=== PATIENT | female | born 1980 ===

== ENCOUNTER 2024-02-03 06:55 | Day surgery (SDC) | payer BC, SELFPAY ==
[2024-02-03 07:27] VITALS: BP 105/75; PULSE 74; RESP 18; TEMP 36.3; O2SAT 98
--- NOTE | 2024-02-03 07:29 | ANES.PREANE2 ---
Pre-Anesthetic Assessment Height/Weight: Height 1.7 m Weight 77.111 kg Temp Pulse Resp BP Pulse Ox O2 Del Method 97.4 F L 74 18 105/75 98 Room Air 02/03/24 07:27 02/03/24 07:27 02/03/24 07:27 02/03/24 07:27 02/03/24 07:27 02/03/24 07:27 Operation Date: 02/03/24 08:00 Proposed Procedures p EGD [id number], G0121, Z12.11 , K21.9(Not Applicable) - Bautista Hernández DO s Colonoscopy(Not Applicable) - Bautista Hernández DO Familial anesthetic complications: None Was Beta Mike taken within 24 hours: N/A Was Clonidine taken within 24 hours: N/A Last intake: > 8 hrs Social No alcohol and No tobacco Exam alert, oriented x 3, clear to auscultation bilaterally and regular rate & rhythm Airway Mallampati: Class I Dentition: full GI Gastroesophageal Reflux Disease Anesthetic Plan ASA status: 2 Anesthesia: MAC Risk of > 500 ml blood loss (7ml/kg in children): No Medications/Allergies Home Medications Medication Instructions Recorded Confirmed Last Taken Type pantoprazole 40 mg tablet,delayed 40 mg PO BID 6 weeks #84 tabs 01/04/24 02/01/24 02/01/24 Rx release (Protonix) desonide 0.05 % topical cream 1 applic topical PRN 02/01/24 02/01/24 01/31/24 History Allergies Allergy/AdvReac Type Severity Reaction Status Date / Time latex Allergy Intermediate ADR-Itching Verified 01/04/24 08:27 [facility] Anesthesia Social History Smoking and tobacco/nicotine status: never used tobacco/nicotine Second hand smoke exposure: No Alcohol intake: never Substance/Drug Use: never Marital status: Data Anesthesia Cardiac Studies: No Data to Display
[2024-02-03 07:39] LABS: OR HCG Qualitative Urine Negative (Negative)
[2024-02-03] MEDS: sodium chloride 0.9% 1,000 ML 30 ML IV (07:42)
--- NOTE | 2024-02-03 08:16 | W.PM.OPSUD ---
Surgery/Procedure H&P Update DATE OF PROCEDURE: February 03, 2024 DATE H&P PERFORMED: 01/04/24 H&P UPDATE INFORMATION: I have reviewed H&P completed within last 30 days, I have examined patient prior to procedure and No changes to prior documentation PLANNED PROCEDURE: Operation Date: 02/03/24 08:00 Proposed Procedures p EGD [id number], G0121, Z12.11 , K21.9(Not Applicable) - DO hakan Martinez Colonoscopy(Not Applicable) - Bautista Hernández DO
[2024-02-03 08:34] VITALS: BP 116/79; PULSE 74; RESP 18; TEMP 36.1; O2SAT 97
--- NOTE | 2024-02-03 08:40 | ANE.PACU2 ---
Inpatient post-anesthesia follow up: Airway intact: Yes Vital signs: Temperature 97.4 F Pulse Rate 74 Respiratory Rate 18 Blood Pressure 105/75 Pulse Oximetry 98 Oxygen Delivery Me thod Room Air Oxygen Flow Rate Fraction of Inspir ed Oxygen Hydration adequate: Yes Nausea and vomiting: No Pain level: 1 Mental status: Baseline
[2024-02-03 09:00] VITALS: BP 103/89; PULSE 63; RESP 18; O2SAT 99
== END 2024-02-03 09:23 | disposition home or self-care (01) ==
PROVIDERS: Anesthesiology; PCP Family Medicine; Visit Provider Surgery
PROC: 0DJ08ZZ Inspection of Upper Intestinal Tract, Via Natural or Artificial Opening Endoscopic (ICD-10-PCS; CPT 43235; principal; 2024-02-03 08:00)
PROC: 0DJD8ZZ Inspection of Lower Intestinal Tract, Via Natural or Artificial Opening Endoscopic (ICD-10-PCS; CPT 45378; 2024-02-03 08:00)
DX: Z12.11 Encounter for screening for malignant neoplasm of colon (principal); K21.9 Gastro-esophageal reflux disease without esophagitis; K29.50 Unspecified chronic gastritis without bleeding
CPT/HCPCS: 43239; 45378; 81025; 88305; J2704; J7030